=== PATIENT | female | born 1965 | race American Indian/Alaskan Native ===

== ENCOUNTER 2020-04-07 08:47 | Day surgery (SDC) | payer MEDICAID, OTHER ==
[~2020-04-07 08:47] MED LIST: SODIUM CHLORIDE 0.9% 1000 ML 1,000 ML IV SCH
[2020-04-07] MEDS ORDERED: SODIUM CHLORIDE 0.9% 1000 ML 1,000 ML ONE (09:34)
--- NOTE | 2020-04-07 09:40 | Anesthesia Day of Surgery ---
Anesthesia Day of Surgery - Day of Surgery Patient Examined: Yes Patient H&P Reviewed: Yes Patient is NPO: Yes
--- NOTE | 2020-04-07 09:40 | Anesthesia Consultation ---
Anesthesia Consult and Med Hx Date of service: 04/07/20 - Airway Anesthetic Teeth Evaluation: Good ROM Head & Neck: Adequate Mental/Hyoid Distance: Adequate Mallampati Class: Class II Intubation Access Assessment: Probably Good - Pulmonary Exam CTA: Yes - Cardiac Exam Cardiac Exam: RRR - Pre-Operative Health Status ASA Pre-Surgery Classification: ASA2 Proposed Anesthetic Plan: MAC - Pulmonary Hx Smoking: No Hx Respiratory Symptoms: No - Cardiovascular System Hx Hypertension: Yes (took losartan this morning) Hx Heart Attack/AMI: No Hx Percutaneous Transluminal Coronary Angioplasty (PTCA): No Hx Cardia Arrhythmia: No - Central Nervous System CVA: No - Gastrointestinal Hx Gastroesophageal Reflux Disease: No - Endocrine Hx Renal Disease: No Hx Liver Disease: No Hx Insulin Dependent Diabetes: No Hx Non-Insulin Dependent Diabetes: No Hx Thyroid Disease: No - Other Systems Hx Obesity: No - Additional Comments Anesthesia Medical History Comments: No hx anesthetic complications.
[2020-04-07] MEDS ORDERED: propofoL 200 MG/20 ML VIAL IV ONE ×3 (10:21→10:52)
[2020-04-07] MEDS ORDERED: LIDOCAINE MPF (2%) 20 MG/1 ML VIAL 5 ML ONE (10:22)
--- NOTE | 2020-04-07 11:23 | Procedure Note ---
Date of procedure: 04/07/20 Pre-op diagnosis: Abdominal Pain/GI Bleeding Post-op diagnosis: other (Gastric,Submucosal Lesion/Mild, Ada Esophagitis/Mild to Moderate Distal Erosive Esophagitis/Gastritis/Small,HRectal Polyps (possibly Hyperplastic)/ Hematochezia secondary to Mild to Moderate External Hemorrhoids and Minor,Internal Hemorrhoids/R/O Ileitis and R/O Microscopic colitis) Procedure: EGD with Biopsy and Colonoscopy with Biopsy Anesthesia: [facility] [place], [place] Surgeon: MAGDALENA MACIAS Estimated blood loss: minimal Pathology: list Specimen disposition: to lab Condition: stable Disposition: same day (Treat with Fluconazole,PPI and prn Bentyl and OTC Hemorrhoidal medication. Avoid aspirin and NSAID for 5 days; otherwise resume home medication. Follow up in 1 to 2 weeks ([phone]).)
[2020-04-07 11:45] VITALS: BP 118/83
--- NOTE | 2020-04-07 12:23 | Operative Report ---
PROCEDURE: Esophagogastroduodenoscopy with biopsy. INDICATIONS: A 54-year-old -[place] female with an underlying history of hypertension, who has been noticing some epigastric pain and some blood in her stool. EGD was done to make sure there was not any significant upper GI pathology present DESCRIPTION OF PROCEDURE: The procedure was done after getting informed consent with MAC anesthesia. Instrument was passed through the hypopharynx into the esophagus, which showed some twku-hv-dzdktppg distal erosive esophagitis and some mild Ada esophagitis. Photo documentation and biopsy was obtained from the distal esophagus as well as from the mid esophagus. In the stomach, in the antrum, there was a raised area suggestive of a submucosal lesion. Photo documentation and biopsy was obtained. Additional biopsy was done from the gastric antrum, gastric body and angular incisura to rule out for H. pylori and atrophic gastritis. There was minimal bleeding associated with the procedure. No complications associated with the procedure. The pylorus was patent. The duodenum in the first and second portion appeared normal. ASSESSMENT: Epigastric pain, havd-gg-qukkkgpk distal erosive esophagitis, mild Ada esophagitis, gastric submucosal lesion, gastritis. PLAN: Treat the patient with fluconazole as well as PPI. Await for the biopsy results, have the patient avoid aspirin and aspirin-related products for the next few days, possibly to get a CT scan of the abdomen to further evaluate the submucosal lesion and possibly an endoscopic ultrasound if needed with biopsy. A colonoscopy will to be done for additional evaluation because of the GI bleed and abdominal pain. The procedure was done in the GI lab with assistance of the GI lab team, which included GORDO Delgado, Silvia juárez and with assistance of Anesthesia. JOB# [id number] SAV/ZANDER
--- NOTE | 2020-04-07 12:33 | Post Anesthesia Evaluation ---
- Post Anesthesia Evaluation Patient Participated: Yes Airway Patent: Yes Stable Respiratory Function: Yes Nausea/Vomiting: No Temp > 96.8F: Yes Pain Manageable: Yes Adequeate Hydration: Yes Anesthesia Complications: No
--- NOTE | 2020-04-07 12:37 | Operative Report ---
PROCEDURE PERFORMED: Colonoscopy with biopsy. INDICATIONS: This is a 54-year-old -[place] female with an underlying history of hypertension, been complaining of some abdominal pain and GI bleeding. EGD showed a submucosal lesion in the antrum as well as some mild to moderate distal erosive esophagitis and some mild Ada esophagitis as well as gastritis. Colonoscopy was done to make sure there was not any significant lower GI pathology present. DESCRIPTION OF PROCEDURE: The procedure was done after getting informed consent with MAC anesthesia. Initial rectal exam showed presence of nuvs-lh-nqiuqlxy external hemorrhoids. Instrument was passed through the rectum onto the cecum, which was identified with ileocecal valve and appendiceal orifice. Visualization was fair to good. The terminal ileum was intubated, showed normal mucosa. Biopsy was done to rule out for possible ileitis. Cecum, ascending colon, transverse colon, descending colon, and sigmoid likewise showed normal mucosa. There was no evidence of any polyps, colitis or diverticular disease. Random biopsies were done to rule out for possible microscopic colitis. The rectum showed several small polyps, possibly hyperplastic that were removed by cold biopsy and also showed some minor internal hemorrhoid. ASSESSMENT: Abdominal pain, hematochezia, possibly secondary to wvho-os-wbupzybn external hemorrhoid and minor internal hemorrhoid, possible hyperplastic polyp, rule out ileitis, rule out microscopic colitis. PLAN: Treat the patient with PPI, fluconazole because of the EGD findings of esophagitis, gastritis and mild Ada esophagitis. Also, the patient will be asked to take vywe-nji-djdjgqj hemorrhoidal medication and will be given Bentyl p.r.n. to help with any abdominal pain. The patient will be asked to avoid aspirin and aspirin-related products for the next few days and follow up in the office in 1-2 weeks' time. The procedure was done in the GI lab with assistance of the GI lab team, which included GORDO Delgado, vania Vega and with assistance of Anesthesia. JOB# [id number] SAV/ZANDER
== END 2020-04-07 08:48 | disposition home or self-care (01) ==
LOC: GIO 08:47
DX: R10.9 Unspecified abdominal pain (principal); K92.1 Melena; K64.8 Other hemorrhoids; K20.90 Esophagitis, unspecified without bleeding; K29.70 Gastritis, unspecified, without bleeding; K31.89 Other diseases of stomach and duodenum; I10 Essential (primary) hypertension; Z98.890 Other specified postprocedural states; Z79.899 Other long term (current) drug therapy
CPT/HCPCS: 43239; 45380; 81025; 88305; 88312; 88342; J2704; J7030

== ENCOUNTER 2020-10-26 11:14 | Outpatient (CLI) | payer MEDICAID ==
[2020-10-26] MEDS ORDERED: WATER FOR INJ Sterile (PF) 10 ML ONE (12:57)
[2020-10-26] MEDS ORDERED: SINCALIDE 5 MCG VIAL IV ONE ×2 (12:58→13:04)
[2020-10-26] MEDS ORDERED: WATER FOR INJ Sterile (PF) 10 ML IV ONE (13:02)
--- NOTE | 2020-10-26 14:15 | Nuclear Medicine Report ---
Nuclear medicine HIDA scan INDICATION: Right upper quadrant pain. TECHNIQUE: 5.1 millicuries of technetium 99 mebrofenin was injected IV per protocol. Multiple plana r images in the region of the liver were then obtained. FINDINGS: There is prompt radiotracer uptake identified within the liver. The gallbladder was visuali zed at 90 minutes in the small bowel is identified at 20 minutes. The gallbladder ejection fraction w as measured at 11 %. IMPRESSION: 1. No evidence of biliary obstruction. 2. Very low gallbladder ejection fraction of only 11% which could be seen with biliary dyskinesia or chronic cholecystitis.. Signer Name: Reed Gentile MD Signed: 10/26/2020 2:10 PM Workstation Name: [id number]
== END 2020-10-26 11:15 | disposition home or self-care (01) ==
LOC: NM 11:14
DX: R10.11 Right upper quadrant pain (principal)
CPT/HCPCS: 78227; A9537; J2805

== ENCOUNTER 2020-12-15 10:03 | Day surgery (SDC) | payer MEDICAID ==
--- NOTE | 2020-12-15 11:05 | Anesthesia Day of Surgery ---
Anesthesia Day of Surgery - Day of Surgery Patient Examined: Yes Patient H&P Reviewed: Yes Patient is NPO: Yes
--- NOTE | 2020-12-15 11:05 | Anesthesia Consultation ---
Anesthesia Consult and Med Hx Date of service: 12/15/20 - Airway Anesthetic Teeth Evaluation: Good ROM Head & Neck: Adequate Mental/Hyoid Distance: Adequate Mallampati Class: Class II Intubation Access Assessment: Probably Good - Pre-Operative Health Status ASA Pre-Surgery Classification: ASA2 Proposed Anesthetic Plan: General - Pulmonary Hx Smoking: No Hx Respiratory Symptoms: No - Cardiovascular System Hx Hypertension: Yes (took lisinopril this morning) Hx Heart Attack/AMI: No Hx Percutaneous Transluminal Coronary Angioplasty (PTCA): No Hx Cardia Arrhythmia: No - Central Nervous System CVA: No - Gastrointestinal Hx Gastroesophageal Reflux Disease: No - Endocrine Hx Renal Disease: No Hx Liver Disease: No Hx Insulin Dependent Diabetes: No Hx Non-Insulin Dependent Diabetes: No Hx Thyroid Disease: No - Other Systems Hx Obesity: No
[2020-12-15] MEDS ORDERED: fentaNYL 100 MCG/2 ML INJ ONE (11:58)
[2020-12-15] MEDS ORDERED: propofoL 200 MG/20 ML VIAL IV ONE ×2 (11:58→12:13)
[2020-12-15] MEDS ORDERED: LIDOCAINE MPF (2%) 20 MG/1 ML VIAL 5 ML ONE (12:12)
[2020-12-15] MEDS ORDERED: ONDANSETRON 4 MG/2 ML INJ ONE (12:13)
--- NOTE | 2020-12-15 12:45 | Procedure Note ---
Date of procedure: 12/15/20 Pre-op diagnosis: Dyspepsia/ Abdominal Pain/ Diarrhea Post-op diagnosis: other (Submucosal Nodule (antrum)/ Gastritis/ Esophagitis/R/O Micorocopic colitis/ R/O Ileitis/Solitary,Left Coln Diverticuli/ Minor Internal and External Hemorrhoids) Procedure: EGD with Biopsy and Colonoscopy with biopsy Anesthesia: [facility] [place] Surgeon: MAGDALENA MACIAS Estimated blood loss: minimal Pathology: list Specimen disposition: to lab Condition: stable Disposition: same day (Treat with PPI,prn Bentyl,OTC Probiotics and OTC Imodium AD prn for diarrhea and OTC Hemorrhoidal medication prn. Avoid aspirin and NSAID for 5 days; otherwise resume home medication and follow up in 1 to 2 weeks ([phone]).)
--- NOTE | 2020-12-15 14:19 | Operative Report ---
DATE OF SURGERY: 12/15/2020 PROCEDURE PERFORMED: Esophagogastroduodenoscopy with biopsy. INDICATIONS: The patient is a 55-year-old, originally from the [facility], who has been having dyspeptic symptoms. She had some abnormal mucosa noted in an EGD done over a year ago. Repeat EGD was done to make sure that abnormal area had not changed. DESCRIPTION OF PROCEDURE: Procedure was done after getting informed consent with MAC anesthesia. The instrument was passed through the hypopharynx into the esophagus, which noted to show a submucosal gastric nodule, from which photodocumentation and biopsy was done. The stomach also showed some gastritis. No ulcers were noted. Additional biopsy was done from the gastric antrum, gastric body and angular incisura to rule out for H. pylori and atrophic gastritis. The pylorus was patent. The duodenum in the first and second portion appeared normal. Biopsy was done from the distal esophagus to assess for the severity of the erosive esophagitis and also to rule out for eosinophilic esophagitis. There was minimal bleeding associated with the procedure. No complications associated with the procedure. ASSESSMENT: Dyspepsia; no peptic ulcer disease noted; submucosal gastric nodule in the antrum; gastritis; mild to moderate erosive esophagitis, rule out eosinophilic esophagitis, rule out celiac disease. PLAN: To wait for the biopsy results. Further treatment adjustment will be according to the biopsy findings. A CT scan of the abdomen and pelvis may be done for further assessment of the submucosal nodule to make sure that it is not a gastric interstitial tumor. The patient will be treated with PPI and asked to avoid aspirin and aspirin-related products for the next few days. Follow up in the office in 1-2 weeks' time and to do a colonoscopy for further assessment of her diarrhea and abdominal pain. Procedure was done in the GI lab with assistance of the GI lab team, which included Winnie, the assistance of the Sean caro, and with assistance of anesthesia. TID: [id number] RECEIPT: [id number] SAV/CHRISTINE
[2020-12-15 14:23] VITALS: BP 147/79
--- NOTE | 2020-12-15 14:35 | Operative Report ---
DATE OF SURGERY: 12/15/2020 INDICATIONS: This is a 55-year-old -[place] female originally from the [facility], who had an EGD done. EGD showed presence of a gastric submucosal nodule in the antrum as well as gastritis and moderate erosive esophagitis. Biopsy was done also to rule out for celiac disease. No peptic ulcer disease was noted. Colonoscopy was done because of presence of abdominal pain and associated diarrhea to make sure she did not have any associated colitis. DESCRIPTION OF PROCEDURE: Procedure was done after getting informed consent with MAC anesthesia. Initial rectal examination was unremarkable. The instrument was passed through the rectum onto the cecum, which was identified with ileocecal valve and appendiceal orifice. Visualization was fair to good. The terminal ileum was intubated, showed normal mucosa. Biopsy was done to rule out for possible ileitis. Cecum, ascending colon, transverse colon showed normal mucosa. Random biopsies were done throughout this area as well as a left colon to rule out for possible microscopic colitis. There was a solitary diverticula noted in the left colon and the proximal left colon and the rectum showed minor internal hemorrhoids and there was also presence of minor external hemorrhoids. There was minimal bleeding associated with the procedure. No complications associated with the procedure. ASSESSMENT: Diarrhea, abdominal pain, solitary left colon diverticula, rule out microscopic colitis, rule out ileitis, minor external and internal hemorrhoid. PLAN: Plan is to treat the patient with Anusol-HC suppository, Bentyl for one to be taken on a p.r.n. basis for abdominal pain, PPI because of the presence of esophagitis and gastritis. The patient will be asked to take cfca-cfd-odfeqgy Imodium A-D as needed for diarrhea. Follow up in the office in 1-2 weeks' time, probably to do a CT scan for further evaluation of the submucosal gastric nodule to make sure that the patient does not have any submucosal pathology like a gastric interstitial tumor and avoid aspirin and aspirin-related products for the next few days, otherwise resume home medication. Procedure was done in the GI lab with assistance of the GI lab team, which included the GI nurse, the recycling technician and with assistance of anesthesia. TID: [id number] RECEIPT: [id number] SAV/GEORGIE
== END 2020-12-15 14:35 | disposition home or self-care (01) ==
LOC: GIO 10:03
DX: R10.9 Unspecified abdominal pain (principal); R19.7 Diarrhea, unspecified; R10.13 Epigastric pain; K57.30 Diverticulosis of large intestine without perforation or abscess without bleeding; K64.8 Other hemorrhoids; K31.7 Polyp of stomach and duodenum; K20.90 Esophagitis, unspecified without bleeding; K31.89 Other diseases of stomach and duodenum; K29.70 Gastritis, unspecified, without bleeding; K63.89 Other specified diseases of intestine; I10 Essential (primary) hypertension; Z79.899 Other long term (current) drug therapy; Z98.890 Other specified postprocedural states
CPT/HCPCS: 43239; 45380; 88305; 88342; J2405; J2704; J3010; J7030